=== PATIENT | male | born 1990 | race Caucasian/White ===

== ENCOUNTER 2022-01-21 21:47 | Emergency (ER) | payer MEDICAID ==
[~2022-01-21] VITALS: Ht 165.1 cm; Wt 86.2 kg
[2022-01-21 22:00] VITALS: BP 144/103
[2022-01-22 00:34] VITALS: BP 129/90
== END 2022-01-22 00:34 | disposition home or self-care (01) ==
LOC: MED 21:47
DX: B34.9 Viral infection, unspecified (principal); Z20.822 Contact with and (suspected) exposure to COVID-19
CPT/HCPCS: 71046; 99284